=== PATIENT | female | born 1995 | race Caucasian/White ===

== ENCOUNTER 2017-09-23 13:19 | Inpatient (IN) ==
--- OUTSIDE RECORDS SUMMARY | 2017-10-03 05:25 | External Medical Summary | Continuity of Care Document ---
:1995 Author Organization [facility] Address [address] [place], [place] [id number] Phone Allergies, Adverse Reactions, Alerts Substance Reaction Severity Status No Known Drug Allergies Unknown Active Medications Medication Instructions Dosage Effective Dates Status Comments (start - stop) 28 mg take 1 tablet by Not Available - Active iron-800 mcg oral route every tablet day Problems Condition Effective Dates (start - stop) Clinical Status Follow-Up, Routine - Encntr for f/u exam aft trtmt for cond - oth than malig neoplm Encounter for suprvsn of normal - , first trimester Previous Low Transverse - 10 weeks gestation of - Encounter for screening for oth - infec/parastc diseases Encounter for screening of - mother Encntr screen for infections w sexl - mode of transmiss Active Procedures Procedure Date Initial OB Visit No Charge - INDUSTRIAL ENGINEER Infct antign, chlamydia trac, ampl Urine Culture OB Panel With An HIV Neisseria Gonorrhoeae, Amplification Venpnctr fngr/heel/ear stick routne Results Test Name Date and Time Measure Units Reference Range Abnormal Flag Comments Panel Description: OBSTETRIC PANEL WHITE BLOOD CELL 7.9 Thousand/uL 3.8-10.8 N COUNT 15:38:00 RED BLOOD CELL 4.98 Million/uL 3.80-5.10 N COUNT 15:38:00 HEMOGLOBIN 13.0 g/dL 11.7-15.5 N 15:38:00 HEMATOCRIT 40.6 % 35.0-45.0 N 15:38:00 MCV 81.5 fL 80.0-100.0 N 15:38:00 MCH 26.1 pg 27.0-33.0 L 15:38:00 MCHC 32.0 g/dL 32.0-36.0 N 15:38:00 RDW 12.0 % 11.0-15.0 N 15:38:00 PLATELET COUNT 381 Thousand/uL 140-400 N 15:38:00 MPV 10.5 fL 7.5-12.5 N 15:38:00 ABSOLUTE 5562 cells/uL 9159-6219 N NEUTROPHILS 15:38:00 ABSOLUTE 1864 cells/uL 850-3900 N LYMPHOCYTES 15:38:00 ABSOLUTE 419 cells/uL 200-950 N MONOCYTES 15:38:00 ABSOLUTE 24 cells/uL 15-500 N EOSINOPHILS 15:38:00 ABSOLUTE 32 cells/uL 0-200 N BASOPHILS 15:38:00 NEUTROPHILS 70.4 % N 15:38:00 LYMPHOCYTES 23.6 % N 15:38:00 MONOCYTES 5.3 % N 15:38:00 EOSINOPHILS 0.3 % N 15:38:00 BASOPHILS 0.4 % N 15:38:00 ANTIBODY SCREEN, NO ANTIBODIES N RBC W/REFL ID, 15:38:00 DETECTED Reference range TITER AND AG No antibodies detected This assay is a screening test for the detection of red blood cell antibodies. The test is not to be used for pretransfusion screening or for the medical management of an alloimmunized . ABO GROUP O 15:38:00 RH TYPE RH (D) 15:38:00 NEGATIVE RPR (DX) W/REFL NON-REACTIVE NON-REACTIV N TITER AND 15:38:00 E CONFIRMATORY TESTING HEPATITIS B NON-REACTIVE NON-REACTIV N SURFACE ANTIGEN 15:38:00 E RUBELLA ANTIBODY 1.01 index N Index (IGG) 15:38:00 Interpretation ----- <0.90 Not consistent with Immunity 0.90-0.99 Equivocal > or=1.00 Consistent with Immunity The presence of rubella IgG antibody suggests immunization or past or current infection withrubella virus.Test performed at [facility] [place] [address]Vwqsnjt r: CARMENZA JOLLY DO,MPH Panel Description: HIV 1/2 ANTIGEN/ANTIBODY,FOURTH GENERATION W/RFL HIV NON-REACTIVE NON-REACTIVE N HIV-1 antigen and HIV-1/HIV- 2 antibodies were AG/AB, 15:38:00 notdetected. There is no laboratory evidence of 4TH GEN HIVinfection. PLEASE NOTE: This information has been disclosed toyou from records whose confidentiality may beprotected by state law. If your state requires suchprotection, then the state law prohibits you frommaking any further disclosure of the informationwithout the specific written consent of the personto whom it pertains, or as otherwise permitted by law.A general authorization for the release of medical orother information is NOT sufficient for this purpose. For additional information please refer tohttp://education.Axtria/faq/BHJ911(This link is being provided for informational/educational purposes only.) The performance of this assay has not been clinicallyvalidated in patients less than 2 years old. REPORT COMMENT:FASTING:NOTest performed at [facility] [place] [address]Vlegzolv: CARMENZA JOLLY DO,MPH Panel Description: Bacteria identified in Urine by Culture CULTURE, URINE, SEE NOTE CULTURE, URINE, ROUTINE MICRO ROUTINE 15:47:00 NUMBER: [id number] TEST STATUS: FINAL SPECIMEN SOURCE: URINE SPECIMEN QUALITY: ADEQUATE RESULT: No GrowthREPORT COMMENT:RFASTING:UNKNOWNTest performed at [facility] [id number] [facility] CENTERweendyTRINITY HE[facility] [place] [address]Txplndnf: CARMENZA JOLLY DO,MPH Panel Description: CHLAMYDIA/N. GONORRHOEAE RNA, TMA CHLAMYDIA NOT DETECTED NOT DETECTED N TRACHOMATIS RNA, 15:44:00 TMA NEISSERIA NOT DETECTED NOT DETECTED N GONORRHOEAE RNA, 15:44:00 TMA [id number] SEE NOTE This test was 15:44:00 performed using the APTIMA COMBO2 Assay([employer] The analytical performance characteristics of this assay, when used to test SurePath specimens havebeen determined by [employer]. REPORT COMMENT:FASTING:UNKNO WNTest performed at [facility] [id number] [place] [place] [address]Yucitqjl: CARMENZA JOLLY DO,MPH Advance Directives Directive Yes / No Effective Date File Name Unknown Encounters Encounter Practice Location Reason(s) Diagnoses Date Provider Care Team Description For Visit Members Rajiv Juarez Encounter for Vlad Referring In Womens suprvsn of normal [place]. 700 Provider: Lora FERGUSON, , first [facility] trimesterPrevious Center Vlad Armstrong, 1522, Low Transverse , [place] 700 [place], C-Ptyorar82 weeks 120, Medical [place], gestation of [facility] [id number], [facility] [place], [place] 120, [place] for screening for [id number] Larry, tel:+ ot infec/parastc , . [place], [facility] tel: [phone]. for [id number] tel:+ screening of [phone] motherEncntr screen for infections w sexl mode of transmiss Rajiv Juarez Mar- Vlad Referring In Womens Follow-Up, Routine [place]. 700 Provider: Lora FERGUSON, 6 Medical [place] [address] [place] [address], , [place] S, 700 [place], 120, Medical [place], [facility] [id number], [place], [place] 120, [place] [id number] [place], tel: , . [place], tel: [phone]. [id number] tel:[phone] Rajiv Juarez Encntr for f/u exam Feb- Ross Referring In Womens aft trtmt for cond 0-201 [place]. Provider: Lora FERGUSON, [facility] 5 700 [place] [address] neoplm Medical [place] 1522, Center S, [address] Dr Elana, [facility] Medical [place], 120, Center [id number], Larry, [facility] 120, [place], tel:[phone] [place], , [place]. [id number]. tel: tel:[phone] Rajiv Juarez Oct-2 [place] Referring In Womens 2-201 [place]. Provider: Health PHYLLIS, 5 700 [place] Box Medical [place] 1522, Center S, [address] Dr Elana, [facility] Medical [place], 120, Center [id number], Larry, [facility] 120, [place] K[place], tel:[phone] [place], , [place]. [id number]. tel: tel:[phone] Rajiv Juarez Oct-0 [place] Referring In Womens 8-201 [place]. Provider: Health PHYLLIS, 5 700 [place] PO Box Medical [place] 1522, Center S, [address] Dr Elana, [facility] Medical [place], 120, Center [id number], Larry, [facility] 120, [place] Larry WHITE, tel:[phone] [place], , [place]. [id number]. tel: tel:[phone] Rajiv Juarez Sep-0 [place] Referring In Womens 8-201 [place]. Provider: Health PHYLLIS, 5 700 [place] Box Medical [place] 1522, Center S, [address] Dr Elana, [facility] Medical [place], 120, Center [id number], Larry, [facility] 120, [place] Larry WHITE, tel:[phone] [place], , [place]. [id number]. tel: tel:[phone] Rajiv Juarez May-2 [place] Referring In Womens 1-201 [place]. Provider: Health PHYLLIS, 5 700 [place] PO Box Medical [place] 1522, Center S, [address] Dr Elana, [facility] Medical [place], 120, Center [id number], Larry, [facility] 120, [place] Larry WHITE, tel:[phone] [place], , [place]. [id number]. tel: tel: [phone] Family History Family Member Diagnosis Age At Onset No family history of Ovarian Cancer No family history of Lung Disease No family history of Stroke No family history of Epilepsy No family history of Diabetes No family history of Kidney Disease No family history of Thyroid Disorder No family history of Osteoporosis No family history of Hypertension No family history of Cardiovascular Disease No family history of Breast Cancer No family history of Colon Cancer Immunizations Vaccine Date Status Comments Tdap completed Source: New Immunization Record Influenza, seasonal, injectable, completed Source: New Immunization Record preservative free, 3 yrs or older Rhophylac completed Source: New Immunization Record Payers Payer name Insurance type Covered green party ID Authorization(s) [facility] [id number] [employer] Medicaid [place] [id number] [facility] [id number] [employer] [place] Medicaid [place] [id number] [facility] [id number] [place] Medicaid MC [id number] [facility] [id number] [place] Medicaid [place] [id number] Social History Type Description Quantity Date Captured Alcohol Use Details No Caffeine Use Details combo Tobacco Use Status Never smoked tobacco Smoking Status Former smoker Non-Smoking Tobacco Use : No Details Available : No Details Available Details Vital Signs Date / Height Weight BMI Pulse Blood Temperature Respiratory Body Head BMI Time: Rate Pressure Rate Surface Circumference percentile Area 145.90 25.0 130/80 lbs 8 mm[Hg] 3:04 kg/m PM eter (2) Chief Complaint And Reason For Visit Unknown Chief Complaint And Reason For Visit Reason For Referral Reason For Referral Unknown Plan Of Care Date Type Action Status Goal Tobacco cessation counseling completed Appointment Francis Levine BOOKED Future Order: Lab Order Pap Smear With HPV Reflex If ASCUS Ordered ([id number]), Collected on: Date Type Problem Goal Intervention Status Start Date Unknown. History Of Present Illness Encounter Date Complaint History Of Present Illness This patient has no known history of present illness Functional Status Encounter Date Functional Assessment Cognitive Assessment Unknown Medications Administered Medication Instructions Dosage Effective Dates (start - stop) Status Comments Drug Treatment Unknown Instructions Date Instruction Additional Information toxoplasmosis precautions (cats / raw meat) sexual activity exercise indications for ultrasound influenza vaccine environmental / work hazards travel use of any medications (including supplements, vitamins, herbs, OTC drugs) domestic violence seat belt use childbirth classes / hospital facilities hospital registration genetic testing risks HIV and other routine tests risk factors identified by history anticipated course of care nutrition and weight gain counseling, special diet HIV and other routine tests risk factors identified by history anticipated course of care nutrition and weight gain counseling, special diet toxoplasmosis precautions (cats / raw meat) sexual activity exercise indications for ultrasound influenza vaccine environmental / work hazards travel tobacco (ask, advise, assess, assist and arrange) alcohol illicit / recreational drugs use of any medications (including supplements, vitamins, herbs, OTC drugs) smoking counseling domestic violence seat belt use childbirth classes / hospital facilities hospital registration genetic testing new ob handbook risks
--- OUTSIDE RECORDS SUMMARY | 2017-10-03 05:25 | External Medical Summary | Continuity of Care Document ---
:1995 Author Organization [facility] Address [address] [place], [place] [id number] Phone Allergies, Adverse Reactions, Alerts Substance Reaction Severity Status No Known Drug Allergies Unknown Active Medications Medication Instructions Dosage Effective Dates Status Comments (start - stop) Rhophylac 1,500 - Active unit (300 mcg)/2 mL injection syringe 28 mg take 1 tablet by Not Available - Active iron-800 mcg oral route every tablet day Problems Condition Effective Dates (start - stop) Clinical Status Follow-Up, Routine - Encntr for f/u exam aft trtmt for cond - oth than malig neoplm Previous Low Transverse - Encntr screen for infections w sexl - mode of transmiss Encounter for screening for oth - infec/parastc diseases Encounter for suprvsn of normal - , first trimester Encounter for screening of - mother 10 weeks gestation of - Encounter for suprvsn of normal - , third trimester 28 weeks gestation of - Type O blood, Rh negative - Previous Low Transverse - 24 weeks gestation of - Previous Low Transverse - Encounter for suprvsn of normal - , second trimester 20 weeks gestation of - Previous Low Transverse - Encounter For Screening For - Malformations 20 weeks gestation of - Encounter for suprvsn of normal - , second trimester 14 weeks gestation of - Encounter for suprvsn of normal - , third trimester 34 weeks gestation of - Encounter for suprvsn of normal - , third trimester 30 weeks gestation of - Encounter for suprvsn of normal - , third trimester 37 weeks gestation of - Encounter for suprvsn of normal - , third trimester 36 weeks gestation of - Encounter for suprvsn of normal - , third trimester 32 weeks gestation of - Active Procedures Procedure Date Unknown Results Test Name Date and Time Measure Units Reference Range Abnormal Flag Comments Unknown Advance Directives Directive Yes / No Effective Date File Name Unknown Encounters Encounter Practice Location Reason(s) Diagnoses Date Provider Care Team Description For Visit Members Rajiv Juarez Encounter for Dagoberto-2 Vlad Referring In Womens suprvsn of normal 8-201 Aj. 700 Provider: Health [place], , third 8 Medical Aj PO Box weeks Center Vlad R, 1522, gestation of [place], 120, Medical [facility] [id number], [facility] 120, [id number] [place], tel: , . [place], tel: [phone]. [id number] tel:[phone] Rajiv Juarez Encounter for Dagoberto-2 Vlad Referring In Womens suprvsn of normal 1-201 Aj. 700 Provider: Health [place], , third 8 Medical Aj PO Box [email or web address] weeks Center Vlad R, 1522, gestation of [place], 120, Medical [facility] [id number], [facility] 120, [id number] Larry, tel: , [facility], tel: [phone]. [phone] tel:[phone] Rajiv Juarez Dagoberto-1 Vlad In Womens 2-201 Aj. 700 [facility], 8 Medical PO Box Center 1522, [place], [facility] [place], [place] [id number], [place], [id number] tel: , [place]. tel: [phone] Rajiv Juarez Encounter for Dagoberto-0 Vlad Referring In Womens suprvsn of normal 7-201 [place]. 700 Provider: Health [place], , third 8 Medical Aj PO Box [email or web address] weeks Center Vlad R, 1522, gestation of [place], 120, Medical [facility] [id number], CINDY, [facility] 120, [place] [id number] [place], tel: , [place]. [place], tel: [phone]. [id number] tel:[phone] Rajiv Juarez Encounter for May-2 Vlad Referring In Womens suprvsn of normal 4-201 [place]. 700 Provider: Health PHYLLIS, , third 8 Medical Aj PO Box [email or web address] weeks Center Vlad R, 1522, gestation of [place] Schumacher [place], 120, Medical [facility] [id number], CINDY, [facility] 120, [place] [id number] Larry, tel: , [place]. [place], tel: [phone]. [id number] tel:[phone] Rajiv Juarez Encounter for May-1 Vlad Referring In Womens suprvsn of normal 0-201 [place]. 700 Provider: Health PHYLLIS, , third 8 Medical Aj PO Box [email or web address] weeks Center Vlad R, 1522, gestation of [place] Schumacher [place], 120, Medical [facility] [id number], CINDY, [facility] 120, [place] [id number] Larry, tel: , [place]. [place], tel: [phone]. [phone] tel:[phone] Rajiv Juarez Encounter for Apr-2 [place] Referring In Womens suprvsn of normal 7-201 [place]. Provider: Health PHYLLIS, , third 8 700 Aj PO Box [email or web address] weeks Medical Vlad R, 1522, gestation of Juanito Mcgarry [place], pregnancyType O , [facility], blood, Rh 120, Center [id number], negative Larry, [facility] 120, Larry WHITE, tel:[phone] [place], , [place]. [id number]. tel: tel: [phone] Associates Larry Previous Low Mar-2 Vlad Referring In Womens Transverse 9-201 [place]. 700 Provider: Lora FERGUSON, [id number] weeks 8 Medical [place] PO Box gestation of Center Vlad R, 1522, [place]umacher [place], 120, Medical [place], Larry, [place] [id number], [place], [place] 120, [place] [id number] Larry, tel: , [place]. [place] tel: [phone]. [id number] tel:[phone] Associates Larry Previous Low Feb-2 Vlad Referring In Womens Transverse 6-201 [place]. 700 Provider: Lora FERGUSON, C-SectionEncounte 8 [facility] PO Box r for suprvsn of Center Vlad R, 1522, normal , [place], second 120, Medical [place], [email or web address] [facility] , gestation of [place], [place] 120, [place] [id number] Larry, tel: , [place]. [place] tel: [phone]. [id number] tel:[phone] Associates Larry Previous Low Feb-2 Vlad Referring In Womens Ultrasound Transverse 6-201 [place]. 700 Provider: Lora FERGUSON, C-SectionEncounte 8 [facility] PO Box r For Center Vlad R, 1522, Screening For [place], [id number] 120, Medical [place], weeks gestation Larry [place] [id number], of [place], [place] 120, [place] [id number] Larry, tel: , [place]. [place] tel: [phone]. [id number] tel:[phone] Associates Larry Encounter for Elias- Vlad Referring In Womens suprvsn of normal 8-201 [place]. 700 Provider: Lora FERGUSON, , second 8 Medical [place] PO Box [email or web address] weeks Center Vlad R, 1522, gestation of [place], 120, Medical [place], [facility] [id number], [place], [place] 120, [place] [id number] Larry, tel: , [place]. [place] tel: [phone]. [phone] tel:[phone] Rajiv Juarez Previous Low Dec-2 Vlad Referring In Womens Transverse 1- [place]. 700 Provider: Lora FERGUSON, C-SectionEncntr 7 Medical [place] PO Box screen for Center Vlad R, 1522, infections w sexl , [place] 700 [place], mode of 120, Medical CT, transmissEncounte Larry, [place] [id number], r for screening CT, [facility] 120, [place] for oth [id number] Larry, tel: infec/parastc , [place]. [place], diseasesEncounter tel: [phone]. for suprvsn of [id number] tel: normal , [phone] first trimesterEncounte r for screening of [email or web address] weeks gestation of Rajiv Juarez Mar-0 Vlad Referring In Womens Follow-Up, [place]. 700 Provider: Lora FERGUSON, Routine 6 Medical [place] PO Box [facility]22, , [facility] S, [address] [place] [address], 120, [facility] [id number], [facility] 120, [place] [id number] [place], tel: , [place]. [place], tel: [phone]. [id number] tel:[phone] Rajiv Juarez Encntr for f/u Dec-1 [place] Referring In Womens exam aft trtmt 0-201 [place]. Provider: Lora FERGUSON, for cond oth than 5 700 [place] PO Box [facility] Medical [facility] 1522, Center S, [address] Dr Elana, [facility], 120, [place] [id number], [facility] 120, [place] Larry WHITE, tel: [phone] [place], , [place]. [id number]. tel: tel: [phone] Rajiv Juarez Oct-2 [place] Referring In Womens 2-201 [place]. Provider: Lora FERGUSON, 5 700 [place] PO Box Medical [facility] 1522, Center S, [address] Dr Elana, [facility], 120, [place] [id number], Larry, [facility] 120, [place] Larry WHITE, tel:[phone] [place], , [place]. [id number]. tel: tel:[phone] Associates Larry Dec-0 [place] Referring In Womens 8- [place]. Provider: Lora FERGUSON, 5 700 [place] Medical [place] 1522, Center S, [address] Dr Elana, [facility] [place], 120, Center [id number], [facility] 120, Larry WHITE, tel:[phone] [place], , [place]. [id number]. tel: tel:[phone] Associates Larry Nov-0 [place] Referring In Womens 8- [place]. Provider: Lroa FERGUSON, 5 700 [place] Medical [place] 1522, Center S, [address] Dr Elana, [facility], 120, [place] [id number], [facility] 120, Larry WHITE, tel:[phone], , [place]. [id number]. tel: tel:[phone] Associates Larry July- [place] Referring In Womens -201 [place]. Provider: Lora FERGUSON, 5 700 [place] Medical [place] 1522, Center S, [address] Dr Elana, [facility] [place], 120, Center [id number], [facility] 120, Larry WHITE, tel:[phone] [place], , [place]. [id number]. tel: tel:[phone] Family History Family Member Diagnosis Age At [...] Comments Tdap completed Source: New Immunization Record Rhophylac completed Source: New Immunization Record Tdap completed Source: New Immunization Record Influenza, seasonal, injectable, completed Source: New Immunization Record preservative free, 3 yrs or older Rhophylac completed Source: New Immunization Record Payers Payer name Insurance type Covered democrat ID Authorization(s) [place] [id number] [employer] [place] Medicaid [place] [id number] [facility] BL [id number] [employer] [place] [facility] [id number] [facility] BL [id number] [employer] [place] [facility] [id number] [facility] BL [id number] [employer] [place] Medicaid [place] [id number] [facility] [id number] [employer] [place] [id number] [facility] [id number] [employer] [place] [id number] Social History Type Description Quantity Date Captured Unknown Vital Signs Date / Height Weight BMI Pulse Blood Temperature Respiratory Body Head BMI Time: Rate Pressure Rate Surface Circumference percentile Area Unknown Chief Complaint And Reason For Visit Unknown Chief Complaint And Reason For Visit Reason For Referral Reason For Referral Unknown Plan Of Care Date Type Action Status Goal Tobacco cessation counseling completed Appointment Francis Levine BOOKED Appointment Francis Levine - [facility] - [facility]/S BOOKED Future Order: Lab Order Pap Smear With HPV Reflex If Ordered ASCUS ([id number]), Collected on: Future Order: Radiology Order Complete OB Ultrasound > 14 Ordered Weeks ([id number]) Date Type Problem Goal Intervention Status Start [...]
--- OUTSIDE RECORDS SUMMARY | 2017-10-03 05:25 | External Medical Summary | Continuity of Care Document ---
:1995 Author Organization [facility] Address [address] [place], [place] [id number] Phone Allergies, Adverse Reactions, Alerts Substance Reaction [...] Rh negative - Previous Low Transverse - Encntr screen for infections w sexl - mode of transmiss Encounter for screening for oth - infec/parastc diseases Encounter for suprvsn of normal - , first trimester Encounter for screening of - mother 10 weeks gestation of - Previous Low Transverse - 24 weeks [...] third trimester 30 weeks gestation of - Active Procedures Procedure Date OB Visit No Charge Injection Administration Rhophylac 100 Units Results Test Name Date and Time Measure Units Reference Range Abnormal Flag Comments Panel Description: CBC With Differential/Platelet WBC 14:34:00 8.8 x10E3/uL 3.4-10.8 RBC 14:34:00 3.94 x10E6/uL 3.77-5.28 Hemoglobin 14:34:00 10.3 g/dL 11.1-15.9 L Hematocrit 14:34:00 33.4 % 34.0-46.6 L MCV 14:34:00 85 fL 79-97 MCH 14:34:00 26.1 pg 26.6-33.0 L MCHC 14:34:00 30.8 g/dL 31.5-35.7 L RDW 14:34:00 13.7 % 12.3-15.4 Platelets 14:34:00 324 x10E3/uL 150-379 Neutrophils 14:34:00 72 % Not Estab. Lymphs 14:34:00 20 % Not Estab. Monocytes 14:34:00 7 % Not Estab. Eos 14:34:00 1 % Not Estab. Basos 14:34:00 0 % Not Estab. Immature Cells 14:34:00 Neutrophils (Absolute) 14:34:00 6.3 x10E3/uL 1.4-7.0 Lymphs (Absolute) 14:34:00 1.8 x10E3/uL 0.7-3.1 Monocytes(Absolute) 14:34:00 0.7 x10E3/uL 0.1-0.9 Eos (Absolute) 14:34:00 0.0 x10E3/uL 0.0-0.4 Baso (Absolute) 14:34:00 0.0 x10E3/uL 0.0-0.2 Immature Granulocytes 14:34:00 0 % Not Estab. Immature Grans (Abs) 14:34:00 0.0 x10E3/uL 0.0-0.1 NRBC 14:34:00 Hematology Comments: 14:34:00 Panel Description: Glucose [Mass/volume] in Serum or Plasma --1 hour post 50 g glucose PO Gestational Diabetes Screen 14:34:00 73 mg/dL 65-135 Panel Description: Blood group antibody screen [Presence] in Serum or Plasma Antibody Screen 14:34:00 Negative Negative Advance Directives Directive Yes / No Effective Date File Name Unknown Encounters Encounter Practice Location Reason(s) Diagnoses Date Provider Care Team Description For Visit Members Rajiv Juarez Encounter for Vlad [facility] 0-201 [place]. 700 Provider: Lora FERGUSON, , third 8 Medical [facility] Box weeks [place] Vlad R, 1522, gestation of Dr [facility] [place], 120, [facility] [id number], [place], [place] 120, [place] [id number] [place], tel: , [place]. [place], tel: [phone]. [phone] tel:[phone] Rajiv Juarez Encounter for Apr-2 [place] Referring In [facility] normal 7-201 [place]. Provider: Lora FERGUSON, , third 8 700 [place] [address] Box [id number] weeks Medical Vlad R, 1522, gestation of Center Malgor[place]ata Huitron, pregnancyType O , [facility], blood, Rh 120, [place] [id number], negative Larry [facility] 120, Larry WHITE, tel: [phone] [facility] , . [id number]. tel: tel: [phone] Rajiv Juarez Previous Low Mar-2 Vlad Referring In Women Transverse 9-201 [place]. 700 Provider: Lora FERGUSON, [id number] weeks 8 Medical [place] PO Box gestation of Center Vlad R, 1522, [place] Schumacher[place], 120, Medical [place], [facility] [id number], [place], [place] 120, [place] [id number] Larry, tel:+ , [place]. [place], tel: [phone]. [id number] tel:[phone] Rajiv Juarez Previous Low Feb-2 Vlad Referring In Womens Transverse 6-201 [place]. 700 Provider: Lora FERGUSON, C-SectionEncounte 8 [facility] PO Box r for suprvsn of Center Vlad R, 1522, normal , [place] Schumacher, second 120, Medical [place], weeks [facility] [id number], gestation of [place], [place] 120, [place] [id number] Larry, tel: , [place]. [place], tel: [phone]. [phone] tel:[phone] Rajiv Juarez Previous Low Feb-2 Vlad Referring In Womens Ultrasound Transverse 6-201 [place]. 700 Provider: Lora FERGUSON, C-SectionEncounte 8 [facility] PO Box r For Center Vlad R, 1522, Screening For [place] Schumacher, [id number] 120, Medical [place], weeks gestation [facility] [id number], of [place], [place] 120, [place] [id number] Larry, tel: , [place]. [place], tel: [phone]. [id number] tel:[phone] Rajiv Juarez Encounter for Elias- Vlad Referring In Womens suprvsn of normal 8-201 [place]. 700 Provider: Lora FERGUSON, , second 8 Medical [place] PO Box [id number] weeks Center Vlad R, 1522, gestation of [place] Schumacher, 120, Medical [place], [facility] [id number], [place], [place] 120, [place] [id number] Larry, tel:+ , [place]. [place], tel: [phone]. [phone] tel:[phone] Rajiv Juarez Previous Low Dec-2 Vlad Referring In Womens Transverse 1-201 [place]. 700 Provider: Health PHYLLIS, C-SectionEncntr 7 [facility] Box screen for Center Vlad R, 1522, infections w sexl , [place] 700 [place], mode of 120, Medical [place], transmissEncounte [facility] [id number], r for screening [place], [facility] 120, [place] for oth [id number] Larry, tel: infec/parastc , [place]. [place], diseasesEncounter tel:[phone]. for suprvsn of [id number] tel: normal , [phone] first trimesterEncounte r for screening of weeks gestation of Associates Larry Elias-0 Vlad Referring In Womens Follow-Up, [place]. 700 Provider: Lora FERGUSON, Routine 6 Medical [place] PO Box [facility] 1522, Dr, [place] S, 700 [place], 120, Medical [place], [facility] [id number], [place], [facility] 120, [place] [id number] Larry, tel: , [place]. [place], tel: [phone]. [phone] tel:[phone] Rajiv Juarez Encntr for f/u Feb- [facility] Referring In Womens exam aft trtmt 0-201 [place]. Provider: Lora FERGUSON, for cond oth than 5 700 [place] PO Box [facility] 1522, Center S, [address] Dr Elana, [facility], 120, [place] [id number], [facility] 120, [place] Larry WHITE, tel: [phone] [facility] , [place]. [id number]. tel: tel: [phone] Rajiv Juarez Dec-2 [place] Referring In Womens 2-201 [place]. Provider: Lora FERGUSON, 5 700 [place] PO Box [facility] 1522, Center S, [address] Dr Elana, [facility], 120, Center [id number], [facility] 120, [place] Larry WHITE, tel: [phone] [facility] , [place]. [id number]. tel: tel: [phone] Rajiv Juarez Dec-0 [place] Referring In Womens 8-201 [place]. Provider: Health [place], 5 700 [place] KISER Box Medical [place] 1522, Center S, 700 Dr Elana, [facility] [place], 120, Center [id number], Larry, [facility] 120, [place] Larry WHITE, tel:[phone] [place], , [place]. [id number]. tel: tel:[phone] Rajiv Juarez Nov- [place] Referring In Womens 8-201 [place]. Provider: Health PA, 5 700 [place] PO Box Medical [place] 1522, Center S, 700 Dr Elana, [facility] [place], 120, Center [id number], [place], [facility] 120, [place] Larry WHITE, tel:[phone] [place], , [place]. [id number]. tel: tel:[phone] Rajiv Juarez July- [place] Referring In Womens 1-201 [place]. Provider: Health PA, 5 700 [place] KISER Box Medical [place] 1522, Center S, 700 Dr Elana, [facility] [place], 120, Center [id number], Larry, [facility] 120, [place] Larry WHITE, tel:[phone] [place], , [place]. [id number]. tel: tel:[phone] Family History Family Member Diagnosis Age At [...] Colon Cancer Immunizations Vaccine Date Status Comments [facility] completed Source: New Immunization Record Tdap completed Source: New Immunization Record Influenza, seasonal, injectable, completed Source: New Immunization Record preservative free, 3 yrs or older Rhophyla completed Source: New Immunization Record Payers Payer name Insurance type Covered alliance party ID Authorization(s) YOUSUF OHARA [id number] [place] [id number] [facility] [place] [id number] [place] [id number] [facility] [place] [id number] [place] - Medicaid [place] [id number] [facility] BL [id number] [place] - Medicaid [place] [id number] [facility] [id number] [place] [id number] Social History Type Description Quantity Date Captured Alcohol Use Details No Caffeine Use Details Unknown Tobacco Use Status Smoking Status Former smoker Vital Signs Date / Height Weight BMI Pulse Blood Temperature Respiratory Body Head BMI Time: Rate Pressure Rate Surface Circumference percentile Area 27.4 1 mm[Hg] 1:36 kg/m PM eter (2) 164.90 28.3 lbs 0 mm[Hg] 1:39 kg/m PM eter (2) Chief Complaint And Reason For Visit Unknown Chief Complaint And Reason For Visit Reason For Referral Reason For Referral Unknown Plan Of Care Date Type Action Status Goal Tobacco cessation counseling completed Appointment Francis Levine BOOKED Appointment Francis Levine [place] [facility] [place] Future Order: Lab Order Pap Smear With HPV Reflex If Ordered ASCUS ([id number]), Collected on: Future Order: Radiology Order Complete OB Ultrasound > 14 Ordered Weeks ([id number]) Date Type Problem Goal Intervention Status Start [...]
--- OUTSIDE RECORDS SUMMARY | 2017-10-03 05:25 | External Medical Summary | Continuity of Care Document ---
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 700 Provider: Health PHYLLIS, C-SectionEncounte 8 [facility] PO Box r for suprvsn of Center Vlad R, 1522, normal , [place] Schumacher, second 120, Medical [place], [id number] [id number], gestation of [place], [place] 120, [place] [id number] [place], tel: , [place]. [place], tel: [phone]. [id number] tel:[phone] Rajiv Juarez Previous Low Feb-2 Vlad Referring In Womens Ultrasound Transverse 6-201 [place]. 700 Provider: Lora FERGUSON, C-SectionEncounte 8 [facility] PO Box r For Center Vlad R, 1522, Screening For [place] Schumacher, [id number] 120, Medical [place], weeks gestation [facility] [id number], of [place], [place] 120, [place] [id number] Larry, tel: , [place]. [place] tel: [phone]. [phone] tel:[phone] Rajiv Juarez Encounter for Elias- Vlad Referring In Womens suprvsn of normal 8-201 [place]. 700 Provider: Lora FERGUSON, , second 8 Medical [place] PO Box weeks Center Vlad R, 1522, gestation of [place] Schum[place], 120, Medical [place], [facility] [id number], [place], [place] 120, [place] [id number] Larry, tel: , [place]. [place] tel: [phone]. [phone] tel:[phone] Rajiv Juarez Previous Low Dec-2 Vlad Referring In Womens Transverse 1-201 [place]. 700 Provider: Health PHYLLIS, C-SectionEncntr 7 [facility] PO Box screen for Center Vlad R, 1522, infections w sexl [place] Schumacher, mode of 120, Medical [place], transmissEncountjosse [facility]Core[facility] [id number], r for screening [place], [place] 120, [place] for oth [id number] Larry, tel: infec/parastc , [place]. [place] diseasesEncounter tel: [phone]. for suprvsn of [id number] tel: normal , [phone] first trimesterEncounte r for screening of weeks gestation of Rajiv Juarez Mar- Vlad Referring In Womens Follow-Up, Aj. 700 Provider: Lora FERGUSON, Routine 6 Medical [place] PO Box [facility] 1522, , [facility], 700 [place], 120, Medical [place], Larry, [place] [id number], [place], [facility] 120, [place] [id number] [place], tel: , [place]. [place], tel: [phone]. [phone] tel:[phone] Rajiv Juarez Encntr for f/u [place] Referring In Womens exam aft trtmt 0-201 [place]. Provider: Lora FERGUSON, for cond oth than 5 700 [place] PO Box [facility] 1522, [place] S, [address] Dr Elana, [facility], 120, [place] [id number], [facility] 120, Larry WHITE, tel: [phone] [place], , [place]. [id number]. tel: tel: [phone] Rajiv Juarez 2 [place] Referring In Womens 2-201 [place]. Provider: Lora FERGUSON, 5 700 [place] PO Box [facility] 1522, Center S, [address] Dr Elana, [facility], 120, [place] [id number], [facility] 120, Larry WHITE, tel: [phone] [place], , [place]. [id number]. tel: tel: [phone] Rajiv Juarez 0 [place] Referring In Womens 8-201 [place]. Provider: Lora FERGUSON, 5 700 [place] PO Box [facility] 1522, Center S, [address] Dr Elana, [facility], 120, Center [id number], Larry, [facility] 120, [place] Larry WHITE, tel:[phone] [place], , [place]. [id number]. tel: tel: [phone] Rajiv Juarez Sep-0 [place] Referring In Womens 8-201 [place]. Provider: Health PA, 5 700 [place] KISER Box Medical [place] 1522, Center S, [address] Dr Elana, [facility], 120, Center [id number], Larry, [facility] 120, Larry WHITE, tel:[phone] [place], , [place]. [id number]. tel: tel:[phone] Rajiv Juarez July-2 [place] Referring In Womens 1-201 [place]. Provider: Health PA, 5 700 [place] PO Box Medical [place] 1522, Center S, [address] Dr Elana, [facility], 120, [place] [id number], Larry, [facility] 120, Larry WHITE, tel:[phone] [place], , [place]. [id number]. tel: tel:[phone] Family History Family Member Diagnosis Age At [...] Record Payers Payer name Insurance type Covered constitution party ID Authorization(s) [facility] [place] BL [id number] [place] Medicaid [place] [id number] [facility] [place] [id number] [place] - Medicaid [place] [id number] [facility] [place] [id number] [place] - Medicaid [place] [id number] [facility] [place] [id number] [place] [id number] Social History Type Description Quantity Date Captured Alcohol Use Details No Caffeine Use Details Unknown Tobacco Use Status Smoking Status Former smoker Vital Signs Date / Height Weight BMI Pulse Blood Temperature Respiratory Body Head BMI Time: Rate Pressure Rate Surface Circumference percentile Area 153.40 26.3 118/69 -2018 lbs 3 mm[Hg] 3:40 kg/m PM eter (2) Chief Complaint And [...] Complete OB Ultrasound > 14 Ordered Weeks ([id number]) Date Type Problem Goal Intervention Status Start [...]
--- OUTSIDE RECORDS SUMMARY | 2017-10-03 05:25 | External Medical Summary | Continuity of Care Document ---
:1994 Author Organization [facility] Address [address] [place], [place] [phone] Phone Allergies, Adverse Reactions, Alerts Substance Reaction [...] aft trtmt for cond - oth than akhildianne bangura Previous Low Transverse - Encounter For Screening For - Malformations 20 weeks gestation of - Previous Low [...] second trimester 20 weeks gestation of - Encounter for suprvsn of normal - , second trimester 14 weeks gestation of - Active Procedures Procedure Date Ultrasound exam of preg uterus, complete Results Test Name Date and Time Measure Units Reference Range Abnormal Flag Comments Unknown Advance Directives Directive Yes / No Effective Date File Name Unknown Encounters Encounter Practice Location Reason(s) Diagnoses Date Provider Care Team Description For Visit Members Rajiv Juarez Previous Low Feb-2 Vlad Referring In Womens Transverse 6-201 [place]. 700 Provider: Health PHYLLIS, C-SectionEncounte 8 [facility] PO Box r for suprvsn of Center Vlad R, 1522, normal , [place] Schumacher, second 120, Medical [place], [id number] [id number], gestation of [place], [place] 120, [place] [id number] Larry, tel: , [place]. [place], tel: [phone]. [phone] tel:[phone] Rajiv Juarez Previous Low Feb-2 Vlad Referring In Womens Ultrasound Transverse 6-201 [place]. 700 Provider: Lora FERGUSON, C-SectionEncounte 8 [facility] PO Box r For Center Vlad R, 1522, Screening For [place] Schumacher, [id number] 120, Medical [place], weeks gestation [facility] [id number], of [place], [place] 120, [place] [id number] Larry, tel: , [place]. [place] tel: [phone]. [id number] tel:[phone] Rajiv Juarez Encounter for Elias- Vlad Referring In Womens suprvsn of normal 8-201 [place]. 700 Provider: Lora FERGUSON, , second 8 Medical [place] PO Box [id number] weeks Center Vlad R, 1522, gestation of [place] Schum[place], 120, Medical [place], [facility] [id number], [place], [place] 120, [place] [id number] Larry, tel: , [place]. [place] tel: [phone]. [id number] tel:[phone] Rajiv Juarez Previous Low Dec-2 Vlad Referring In Womens Transverse 1-201 [place]. 700 Provider: Health PHYLLIS, C-SectionEncntr 7 [facility] PO Box screen for Center Vlad R, 1522, infections w sexl [place] Schumacher, mode of 120, Medical [place], transmissEncountjosse [facility]Vib[facility] [id number], r for screening [place], [place] 120, [place] for oth [id number] Larry, tel: infec/parastc , [place]. [place] diseasesEncounter tel: [phone]. for suprvsn of [id number] tel: normal , [phone] first trimesterEncounte r for screening of [id number] weeks gestation of Rajiv Juarez Mar- Vlad Referring In Womens Follow-Up, Aj. 700 Provider: Lora FERGUSON, Routine 6 Medical [place] PO Box [facility] 1522, , [facility], 700 [place], 120, Medical [place], Larry, [place] [id number], [place], [facility] 120, [place] [id number] Larry, tel: , [place]. [place], tel: [phone]. [phone] tel:[phone] Rajiv Juarez Encntr for f/u [place] Referring In Womens exam aft trtmt 0-201 [place]. Provider: Lora FERGUSON, for cond oth than 5 700 [place] PO Box [facility] 1522, [place] S, [address] Dr Elana, [facility], 120, [place] [id number], [facility] 120, Larry WHITE, tel: [phone] [place], , [place]. [id number]. tel: tel: [phone] Rajiv Juarez 2 [place] Referring In Womens 2-201 [place]. Provider: Lora FERGUSON, 5 700 [place] PO Box [facility] 1522, Center S, [address] Dr Elana, [facility], 120, [place] [id number], [facility] 120, Larry WHITE, tel: [phone] [place], , [place]. [id number]. tel: tel: [phone] Rajiv Juarez 0 [place] Referring In Womens 8-201 [place]. Provider: Lora FERGUSON, 5 700 [place] PO Box [facility] 1522, Center S, [address] Dr Elana, [facility], 120, Center [id number], Larry, [facility] 120, [place] Larry WHITE, tel:[phone] [place], , [place]. [id number]. tel: tel: [phone] Rajiv Juarez Nov-0 [place] Referring In Womens 8-201 [place]. Provider: Health PA, 5 700 [place] KISER Box Medical [place] 1522, Center S, [address] Dr Elana, [facility], 120, Center [id number], Larry, [facility] 120, Larry WHITE, tel: [phone] [place], , [place]. [id number]. tel: tel:[phone] Rajiv Juarez July- [place] Referring In Womens 1-201 [place]. Provider: Health PHYLLIS, 5 700 [place] PO Box Medical [place] 1522, Center S, [address] Dr Elana, [facility], 120, [place] [id number], Larry, [facility] 120, Larry WHITE, tel:[phone] [place], , [place]. [id number]. tel: tel: [phone] Family History Family Member Diagnosis Age At [...] Insurance type Covered green party ID Authorization(s) [facility] [place] [id number] [employer] [place] Medicaid [place] [id number] [facility] [place] BL [id number] [employer] [place] - Medicaid [place] [id number] [facility] [place] BL [id number] [place] - Medicaid MC [id number] [facility] BL [id number] [place] Medicaid MC [id number] Social History Type Description Quantity Date Captured [...] completed Appointment Francis Levine BOOKED Future Order: Radiology Order Complete OB Ultrasound > 14 Ordered Weeks ([id number]) Future Order: Lab Order Pap Smear With HPV Reflex If Ordered ASCUS (WPMPap1), Collected on: Date Type Problem Goal [...]
--- OUTSIDE RECORDS SUMMARY | 2017-10-03 05:26 | External Medical Summary | Continuity of Care Document ---
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 For additional information please refer [email or web address]/faq/[email or web address](This link is being provided for informational/educational purposes only.) The performance of this assay has not been clinicallyvalidated in patients less than 2 years old. REPORT COMMENT:FASTING:NOTest performed at [facility] [id number] [place] [address]Tvxqhlnz: CARMENZA JOLLY DO,MPH Panel Description: Bacteria identified in Urine by Culture CULTURE, URINE, SEE NOTE CULTURE, URINE, ROUTINE MICRO ROUTINE 15:47:00 NUMBER: [id number] TEST STATUS: FINAL SPECIMEN SOURCE: URINE SPECIMEN QUALITY: ADEQUATE RESULT: No GrowthREPORT COMMENT:RFASTING:UNKNOWNTest performed at [facility] [id number] [place] [address]Ecplkinn: CARMENZA JOLLY DO,MPH Panel Description: CHLAMYDIA/N. GONORRHOEAE RNA, TMA CHLAMYDIA NOT DETECTED NOT DETECTED N TRACHOMATIS RNA, 15:44:00 TMA NEISSERIA NOT DETECTED NOT DETECTED N GONORRHOEAE RNA, 15:44:00 TMA [id number] SEE NOTE This test was 15:44:00 performed using the APTIMA COMBO2 Assay([employer] The analytical performance characteristics of this assay, when used to test SurePath specimens havebeen determined by [employer]. REPORT COMMENT:FASTING:UNKNO WNTest performed at [facility] [id number] [place] [address]Kumdrsiy: CARMENZA JOLLY DO,MPH Advance Directives Directive Yes / No Effective Date File Name Unknown Encounters Encounter Practice Location Reason(s) Diagnoses Date Provider Care Team Description For Visit Members Rajiv Juarez Encounter for Vlad Referring In Womens suprvsn of normal [place]. 700 Provider: Health [place], , first 7 [facility] trimesterPrevious Center Vlad R, 1522, Low Transverse , [place] [address] [place], C-Qsabtgl36 weeks 120, [facility], gestation of [facility] [id number], pregnancyEncounter [place], [facility] 120, [place] for screening for [id number] Larry, tel: ot infec/parastc , . [place], [facility] tel: [phone]. for [id number] tel: screening of [id number] motherEncntr screen for infections w sexl mode of transmiss Rajiv Juarez Mar- Vlad Referring In Womens Follow-Up, Routine [place]. 700 Provider: Health PHYLLIS, 6 Medical [place] [address] [place] 1522, , [facility] S, 700 Elana, [facility], [facility] [id number], [place], [facility] 120, [place] [id number] Larry, tel: , . [place], tel: [phone]. [phone] tel:[phone] Rajiv Juarez Encntr for f/u exam Feb- [facility] Referring In Womens aft trtmt for cond 0-201 [place]. Provider: Health PHYLLIS, ot zeus mahmood 5 700 Greer PO Box [facility] [place] 1522, Center [place], [address] Dr Elana, [facility], 120, [place] [id number], [facility] 120, Larry WHITE, tel:[phone] [facility] , . [id number]. tel: tel:[phone] Rajiv Juarez Dec-2 [place] Referring In Womens 2-201 [place]. Provider: Lora FERGUSON, 5 700 Greer [place] [facility] [place] 1522, Center S, [address] Dr Elana, [facility] [place], 120, Center [id number], Larry, [facility] 120, [place] Larry WHITE, tel:[phone] [place], , [place]. [id number]. tel: tel:[phone] Rajiv Juarez Dec-0 [place] Referring In Womens 8-201 [place]. Provider: Lora FERGUSON, 5 700 Greer KISER Box Medical [place] 1522, Center S, [address] Dr Elana, [facility] [place], 120, Center [id number], Larry, [facility] 120, [place] Larry WHITE, tel:[phone] [place], , [place]. [id number]. tel: tel:[phone] Rajiv Juarez Sep-0 [place] Referring In Womens 8-201 Greer. Provider: Lora FERGUSON, 5 700 Greer KISER Box Medical [place] 1522, Center S, [address] Dr Elana, [facility] [place], 120, Center [id number], Larry, [facility] 120, [place] Larry WHITE, tel:[phone] [place], , [place]. [id number]. tel: tel:[phone] Rajiv Juarez July-2 [place] Referring In Womens 1-201 Greer. Provider: Lora FERGUSON, 5 700 Greer KISER Box Medical [place] 1522, Center S, [address] Dr Elana, [facility] [place], 120, Center [id number], Larry, [facility] 120, [place] Larry WHITE, tel:[phone] [place], , [place]. [id number]. tel: tel:[phone] Family History Family Member Diagnosis Age At [...] Insurance type Covered constitution party ID Authorization(s) [facility] [id number] [place] Medicaid [place] [id number] [facility] [id number] [place] - Medicaid [place] [id number] [facility] [id number] [place] - Medicaid [place] [id number] [facility] [id number] [place] Medicaid [place] [id number] Social History Type Description Quantity Date Captured [...] Action Status Goal Tobacco cessation counseling completed Future Order: Lab Order Pap Smear With [...]
--- OUTSIDE RECORDS SUMMARY | 2017-10-03 05:26 | External Medical Summary | Continuity of Care Document ---
:1994 Author Organization [facility] Address [address] [place], [place] [phone] Phone Allergies, Adverse Reactions, Alerts Substance Reaction [...] aft trtmt for cond - oth than timoteo kiseryobanisimone Previous Low Transverse - 24 weeks gestation [...] Procedures Procedure Date OB Visit No Charge Results Test Name Date and Time Measure Units Reference Range Abnormal Flag Comments Unknown Advance Directives Directive Yes / No Effective Date File Name Unknown Encounters Encounter Practice Location Reason(s) Diagnoses Date Provider Care Team Description For Visit Members Associates Larry Previous Low Mar-2 Vlad Referring In Womens Transverse 9-201 [place]. 700 Provider: Lora FERGUSON, [id number] weeks 8 Medical [place] PO Box gestation of Center Vlad R, 1522, Daqu[place] Schumacher [place], 120, Medical [place], [facility] [id number], [place], [place] 120, [place] [id number] Larry, tel: , [place]. [place], tel: [phone]. [id number] tel:[phone] Rajiv Juarez Previous Low Feb-2 Vlad Referring In Womens Transverse 6-201 [place]. 700 Provider: Lora FERGUSON, C-SectionEncounte 8 [facility] PO Box r for suprvsn of Center Vlad R, 1522, normal , [place] Schumacher, second 120, Medical [place], [id number] weeks [facility] , gestation of [place], [place] 120, [place] [id number] [place], tel: , [place]. [place], tel: [phone]. [phone] tel:[phone] Rajiv Juarez Previous Low Feb-2 Vlad Referring In Womens Ultrasound Transverse 6-201 [place]. 700 Provider: Lora FERGUSON, C-SectionEncounte 8 [facility] PO Box r For Center Vlad R, 1522, Screening For [place] Schumacher, [id number] 120, Medical [place], weeks gestation [facility] [id number], of [place], [place] 120, [place] [id number] Larry, tel: , [place]. [place], tel: [phone]. [phone] tel:[phone] Rajiv Juarez Encounter for Mar- Vlad Referring In Womens suprvsn of normal 8-201 [place]. 700 Provider: Lora FERGUSON, , second 8 Medical [place] PO Box [id number] weeks Center Vlad R, 1522, gestation of [place], 120, Medical [place], [facility] [id number], [place], [place] 120, [place] [id number] Larry, tel: , [place]. [place], tel: [phone]. [id number] tel:[phone] Rajiv Juarez Previous Low Dec-2 Vlad Referring In Womens Transverse 1- [place]. 700 Provider: Lora FERGUSON, C-SectionEncntr 7 Medical [place] PO Box screen for Center Vlad R, 1522, infections w sexl , [place] 700 [place], mode of 120, Medical CINDY, transmissEncounte Larry, Avis [id number], [place] for screening [place], [facility] 120, [place] for oth [id number] Larry, tel: infec/parastc , [place]. [place], diseasesEncounter tel: [phone]. for suprvsn of [id number] tel: normal , [phone] first trimesterEncounte r for screening of lmatww06 weeks gestation of Rajiv Juarez Elias-0 Vlad Referring In Womens Follow-Up, [place]. 700 Provider: Lora FERGUSON, Routine 6 Medical [place] PO Box [facility] 1522, , [facility] S, [address] [place] [address], 120, [facility] [id number], [place], [facility] 120, [place] [id number] Larry, tel: , [place]. [place], tel: [phone]. [id number] tel:[phone] Rajiv Juarez Encntr for f/u Dec-1 [place] Referring In Womens exam aft trtmt 0-201 [place]. Provider: Lora FERGUSON, for cond oth than 5 700 [place] PO Box [facility] 1522, Center S, [address] Dr Elana, [facility] [place], 120, A[place] [id number], [facility] 120, [place] Larry WHITE, tel: [phone] [place], , [place]. [id number]. tel: tel: [phone] Rajiv Juarez Dec-2 [place] Referring In Womens 2-201 [place]er. Provider: Lora FERGUSON, 5 700 [place] PO Box [facility] 1522, Center S, [address] Dr Elana, [facility] [place], 120, Avis [id number], Larry, [facility] 120, [place] Larry WHITE, tel:[phone] [place], , [place]. [id number]. tel: tel:[phone] Rajiv Juarez [place] Referring In Womens 8- [place]er. Provider: Health PHYLLIS, 5 700 Greer [place] [facility] [place] 1522, Center S, [address] Dr Elana, [facility] [place], 120, Center [id number], Larry, [facility] 120, Larry WHITE, tel:[phone] [place], , [place]. [id number]. tel: tel:[phone] Rajiv Juarez Nov- [place] Referring In Womens 8-201 [place]er. Provider: Lora FERGUSON, 5 700 [place] Medical [place] 1522, Center S, [address] Dr Elana, [facility] [place], 120, Center [id number], Juarez, [facility] 120, Larry WHITE, tel:[phone] [place], , [place]. [id number]. tel: tel:[phone] Rajiv Juarez July- Ross Referring In Womens 1-201 [place]er. Provider: Lora FERGUSON, 5 700 Greer KISER Box Medical [facility] 1522, Center S, [address] Dr Elana, [facility] [place], 120, Center [id number], Larry, [facility] 120, [place] Larry WHITE, tel:[phone] [place], , [place]. [id number]. tel: tel:[phone] Family History Family Member Diagnosis Age At [...] Insurance type Covered constitution party ID Authorization(s) [facility] CINDY [id number] [place] - Medicaid [place] [id number] [facility] CINDY [id number] [place] Medicaid [place] [id number] [facility] CINDY [id number] [place] Medicaid MC [id number] [facility] [id number] [place] - Medicaid [place] [id number] Social History Type Description Quantity Date Captured Alcohol Use Details No Caffeine Use Details Unknown Tobacco Use Status Smoking Status Former smoker Vital Signs Date / Height Weight BMI Pulse Blood Temperature Respiratory Body Head BMI Time: Rate Pressure Rate Surface Circumference percentile Area 159.70 27.4 124/ lbs 1 mm[Hg] 2:14 kg/m PM eter (2) Chief Complaint And Reason For Visit Unknown Chief Complaint And Reason For Visit Reason For Referral Reason For Referral Unknown Plan Of Care Date Type Action Status Goal Tobacco cessation counseling completed Appointment Francis Levine DMS BOOKED Appointment Francis Levine - AK[facility] - RC/S BOOKED Future Order: Lab Order Pap Smear With HPV Reflex If Ordered ASCUS ([id number]), Collected on: Future Order: Radiology Order Complete OB Ultrasound > 14 Ordered Weeks ([id number]) Date Type Problem Goal Intervention Status Start [...]
--- OUTSIDE RECORDS SUMMARY | 2017-10-03 05:26 | External Medical Summary | Continuity of Care Document ---
:1994 Author Organization [facility] Address [address] [place], [place] [phone] Phone Allergies, Adverse Reactions, Alerts Substance Reaction [...] third trimester 34 weeks gestation of - Previous Low Transverse [...] of normal 1-201 Aj. 700 Provider: Health PHYLLIS, , third 8 Medical Aj PO Box [id number] weeks [place] Vlad Armstrong, 1522, gestation of [place] Schumacher, 120, Medical Larry [facility] [id number], [facility] 120, [place] [id number] Larry, tel: , . [place], tel: [phone]. [phone] tel:[phone] Rajiv Juarez Encounter for Dagoberto-0 Vlad Referring In Womens suprvsn of normal 7-201 Aj. 700 Provider: Health PHYLLIS, , third 8 Medical Aj PO Box [id number] weeks [place] Vlad Armstrong 1522, gestation of Daqu[place] Schumacher, 120, Medical Larry [facility] [id number], [facility] 120, [place] [id number] Larry, tel: , . [place], tel: [phone]. [id number] tel:[phone] Rajiv Juarez Encounter for July-2 Vlad Referring In Womens suprvsn of normal 4-201 Aj. 700 Provider: Health PHYLLIS, , third 8 Medical Aj PO Box [id number] weeks Center Vlad Armstrong, 1522, gestation of [place] Schumacher, 120, Medical Larry [facility] [id number], [place], [place] 120, [place] [id number] Larry, tel: , [place]. [place], tel: [phone]. [id number] tel:[phone] Rajiv Juarez Encounter for May-1 Vlad Referring In Womens suprvsn of normal 0-201 [place]. 700 Provider: Lora FERGUSON, , third 8 Medical [facility] Box [id number] weeks Center Vlad Armstrong, 1522, gestation of [place] Schumacher, 120, Medical Larry [facility] [id number], [place], [place] 120, [place] [id number] Larry, tel: , [place]. [place], tel: [phone]. [id number] tel:[phone] Rajiv Juarez Encounter for Apr-2 [place] Referring In Womens suprvsn of normal 7-201 [place]. Provider: Lora FERGUSON, , third [address] [place] [address] Box weeks Medical Vlad Armstrong, 1522, gestation of [place] Malgorzata Huitron, pregnancyType O , [facility], blood, Rh 120, [place] [id number], negative Juarez, [facility] 120, [place] Larry WHITE, tel: [phone] [place], , [place]. [id number]. tel: tel: [phone] Rajiv Juarez Previous Low Mar-2 Vlad Referring In Womens Transverse 9-201 [place]. 700 Provider: Lora FERGUSON, C-Neggqrr69 weeks 8 Medical [facility] Box gestation of [place] Vlad Armstrong, 1522, [place]qu[place] Schumacher, 120, Medical Larry WHITE, [place] [id number], [place], [facility] 120, [place] [id number] Larry, tel: , . [place], tel: [phone]. [id number] tel:[phone] Rajiv Juarez Previous Low Feb-2 Vlad Referring In Womens Transverse 6-201 [place]. 700 Provider: Lora FERGUSON, C-SectionEncounte 8 Medical [facility] Box r for suprvsn of [place] Vlad R, 1522, normal , [place] Schumacher, second 120, Medical [place], [facility] [id number], gestation of [place], [place] 120, [place] [id number] Larry, tel: , [place]. [place], tel: [phone]. [id number] tel:[phone] Rajiv Juarez Previous Low Feb-2 Vlad Referring In Womens Ultrasound Transverse 6-201 [place]. 700 Provider: Lora FREGUSON, C-SectionEncounte 8 [facility] PO Box r For Center Vlad R, 1522, Screening For [place] Schumacher, Weefaclfmqgce05 120, Medical [place], weeks gestation [facility] [id number], of [place], [place] 120, [place] [id number] Larry, tel: , [place]. [place], tel:[phone]. [id number] tel:[phone] Rajiv Juarez Encounter for Mar- Vlad Referring In Womens suprvsn of normal [place]. 700 Provider: Lora FERGUSON, , second 8 Medical [place] PO Box [id number] weeks Center Vlad R, 1522, gestation of [place] Schumacher, 120, Medical N[facility] [id number], [place], [place] 120, [place] [id number] Larry, tel: , [place]. [place], tel:[phone]. [id number] tel:[phone] Rajiv Juarez Previous Low Dec-2 Vlad Referring In Womens Transverse [place]. 700 Provider: Lora FERGUSON, C-SectionEncntr 7 [facility] PO Box screen for Center Vlad R, 1522, infections w sexl Dr Daqu[place] Malgorzata Huitron, mode of 120, Medical [place], transmissEncounte [facility]Core[facility] [id number], r for screening [place], [place] 120, [place] for oth [id number] Larry, tel: infec/parastc , [place]. [place], diseasesEncounter tel: [phone]. for suprvsn of [id number] tel:+ normal , [phone] first trimesterEncounte r for screening of [id number] weeks gestation of Rajiv Juarez Elias-0 Vlad Referring In Womens Follow-Up, [place]. 700 Provider: Health PA, Routine 6 Medical [place] PO Box [place] Hold[place] 1522, Dr, [place] S, 700 Elana, 120, Medical CINDY, Larry, [place] [id number], [place], [place] 120, [place] [id number] Larry, tel:+2 , [place]. [place], tel: [phone]. [id number] tel:[phone] Rajiv Juarez Encntr for f/u Dec-1 [place] Referring In Womens exam aft trtmt 0-201 [place]. Provider: Lora FERGUSON, for cond oth than 5 700 Greer PO Box [facility] Medical [facility] 1522, Center S, [address] Dr Elana, [facility] [place], 120, Center [id number], Larry, [facility] 120, [place] Larry WHITE, tel:+ [phone] [place], , [place]. [id number]. tel: tel: [phone] Rajiv Juarez Oct-2 [place] Referring In Womens 2-201 [place]er. Provider: Lora FERGUSON, 5 700 Greer PO Box Medical [place] 1522, Center S, [address] Dr Elana, [facility] [place], 120, [place] [id number], Larry, [facility] 120, [place] Larry WHITE, tel: [phone] [place], , [place]. [id number]. tel: tel: [phone] Rajiv Juarez Oct-0 [place] Referring In Womens 8-201 [place]er. Provider: Lora FERGUSON, 5 700 Gre[place] PO Box Medical [place] 1522, Center S, [address] Dr Elana, [facility] [place], 120, Center [id number], Larry, [facility] 120, [place] Larry WHITE, tel:[phone] [place], , [place]. [id number]. tel: tel:[phone] Rajiv Juarez Sep-0 [place] Referring In Womens 8-201 [place]er. Provider: Lora FERGUSON, 5 700 Gre[place] PO Box Medical [place] 1522, Center S, [address] Dr Elana, [facility] [place], 120, Center [id number], Larry, [facility] 120, [place] CINDY Larry, tel: [phone] CINDY, , . [id number]. tel: [phone] Rajiv Juarez July- [place] Referring In Womens 1-201 [place]. Provider: [facility], 5 700 Gre[place] PO Box Medical [place] 1522, [place] S, [address] Dr Elana, [facility], 120, [place] [id number], [facility] 120, CINDY Larry, tel: [phone] [place], , [place]. [id number]. tel: tel:[phone] Family History Family Member Diagnosis Age At [...] Record Payers Payer name Insurance type Covered republican ID Authorization(s) [facility] [place] [id number] [place] [id number] [place] [id number] [place] - Medicaid [place] [id number] [facility] [place] [id number] [place] - Medicaid [place] [id number] [facility] [place] [id number] [place] - [place] [id number] [facility] [place] [id number] [place] [id number] [facility] [place] [id number] [place] MC [id number] Social History Type Description Quantity Date Captured Alcohol Use Details No Caffeine Use Details Unknown Tobacco Use Status Smoking Status Former smoker Vital Signs Date / Height Weight BMI Pulse Blood Temperature Respiratory Body Head BMI Time: Rate Pressure Rate Surface Circumference percentile Area 169.30 29.0 122/79 2018 lbs 6 mm[Hg] 2:00 kg/m PM eter (2) Chief Complaint And Reason For Visit Unknown Chief Complaint And Reason For Visit Reason For Referral Reason For Referral Unknown Plan Of Care Date Type Action Status Goal Tobacco cessation counseling completed Appointment rFancis Levine BOOKED Appointment Francis Levine - VAC - RC/S BOOKED Future Order: Lab Order Pap Smear With HPV Reflex If Ordered ASCUS (WPMPap1), Collected on: Future Order: Radiology Order Complete OB Ultrasound > 14 Ordered Weeks ([id number]) Date Type Problem Goal Intervention Status Start [...]
--- OUTSIDE RECORDS SUMMARY | 2017-10-03 05:26 | External Medical Summary | Continuity of Care Document ---
:1995 Author Organization [facility] Address [address] [place], [place] [id number] Phone Allergies, Adverse Reactions, Alerts Substance Reaction [...] third trimester 30 weeks gestation of - Previous Low Transverse [...] , third 8 Medical Aj [address] Box [id number] weeks [place] Vlad R, 1522, gestation of Daquan Schumacher, 120, Medical [facility] [id number], [place], [facility] 120, [place] [id number] Larry, tel: , [place]. CINDY, tel: [phone] tel:[phone] Rajiv Juarez Encounter for Vlad Referring In Womens suprvsn of normal 0-201 Aj. 700 Provider: Health PHYLLIS, , third 8 Medical Aj [address] Box [id number] weeks [place] Vlad R, 1522, gestation of Daquan Schumacher, 120, [facility] [id number], [place], [facility] 120, [place] [id number] Lrary, tel: , [place]. [place], tel: [phone] tel:[phone] Rajiv Juarez Encounter for Cotto Referring In Womens suprvsn of normal 7-201 [place]. Provider: Health PA, , third 8 700 Aj PO Box [id number] weeks Medical Vlad R, 1522, gestation of [place] Malgorzata Huitron pregnancyType O , [facility] CINDY, blood, Rh 120, Center [id number], negative Larry, [facility] 120, Larry WHITE, tel: [phone] [facility] , . [id number]. tel: tel: [phone] Rajiv Juarez Previous Low Mar-2 Vlad Referring In Womens Transverse 9-201 [place]. 700 Provider: Health PHYLLIS, [id number] weeks 8 Medical [place] PO Box gestation of Center Vlad R, 1522, Daquan Schumacher, 120, Medical [place], Juarez, [place] [id number], [place], [place] 120, [place] [id number] Larry, tel: , [place]. [place], tel: [phone] tel:[phone] Rajiv Juarez Previous Low Feb-2 Vlad Referring In Womens Transverse 6-201 [place]. 700 Provider: Health PHYLLIS, C-SectionEncounte 8 [facility] PO Box r for suprvsn of Center Vlad R, 1522, normal , Daquan Schumacher, second 120, Medical [place], [id number] weeks [facility] [id number], gestation of [place], [place] 120, [place] [id number] Larry, tel: , [place]. [place], tel: [phone]. [phone] tel:[phone] Rajiv Juarez Previous Low Feb-2 Vlad Referring In Womens Ultrasound Transverse 6-201 [place]. 700 Provider: Lora FERGUSON, C-SectionEncounte 8 [facility] PO Box r For Center Vlad R, 1522, Screening For Daquan Schumacher, [id number] 120, Medical [place], weeks gestation [facility] [id number], of [place], [place] 120, [place] [id number] Larry, tel: , [place]. [place], tel: [phone] tel:[phone] Rajiv Juarez Encounter for Elias- Vlad Referring In Womens suprvsn of normal 8-201 [place]. 700 Provider: Lora FERGUSON, , second 8 Medical [place] PO Box [id number] weeks Center Vlad R, 1522, gestation of Daquan Schumacherta, 120, Medical [place], [facility] [id number], [place], [place] 120, [place] [id number] Larry, tel: , [place]. [place], tel: [phone]. [phone] tel:[phone] Rajiv Juarez Previous Low Dec-2 Vlad Referring In Womens Transverse 1- [place]. 700 Provider: Health PHYLLIS, C-SectionEncntr 7 Medical [place] PO Box screen for Center Vlad R, 1522, infections w sexl , [place]an 700 [place], mode of 120, Medical CINDY, transmissEncounte Larry, [place] [id number], vance for screening [place], [facility] 120, for oth [id number] Larry, tel: infec/parastc , [place]. [place], diseasesEncounter tel: [phone]. for suprvsn of [id number] tel:[phone] first trimesterEncounte r for screening of [id number] weeks gestation of Rajiv Juarez Elias-0 Vlad Referring In Womens Follow-Up, - [place]. 700 Provider: Lora FERGUSON, Routine 6 Medical [place] PO Box [facility] 1522, , [facility] S, [address] [place] [address], 120, [facility] [id number], [place], [facility] 120, [place] [id number] Larry, tel: , [place]. [place], tel: [phone]. [phone] tel:[phone] Rajiv Juarez Encntr for f/u Dec-1 [place] Referring In Womens exam aft trtmt 0-201 [place]. Provider: Lora FERGUSON, for cond oth than 5 700 [place] PO Box [facility] 1522, Center S, [address] Dr Elana, [facility], 120, [place] [id number] [facility] 120, [place] Larry WHITE, tel: [phone] [facility] , [place]. [id number]. tel: tel: [phone] Rajiv Juarez Dec-2 [place] Referring In Womens 2-201 [place]. Provider: Lora FERGUSON, 5 700 [place] PO Box Medical [facility] 1522, Center S, [address] Dr Elana, [facility], 120, [place] [id number], Larry, [facility] 120, [place] Larry WHITE, tel:[phone] [facility] , [place]. [id number]. tel: tel:[phone] Associates Larry [place] Referring In Womens 8- [place]. Provider: Health PHYLLIS, 5 700 [place] Medical [place] 1522, Center S, [address] Dr Elana, [facility], 120, Center [id number], [facility] 120, Larry WHITE, tel:[phone] [place], , [place]. [id number]. tel: tel:[phone] Associates Larry Nov- [place] Referring In Womens 8-201 [place]. Provider: Lora FERGUSON, 5 700 [place] Medical [place] 1522, Center S, [address] Dr Elana, [facility], 120, [place] [id number], Larry, [facility] 120, Larry WHITE, tel:[phone] [place], , [place]. [id number]. tel: tel:[phone] Rajiv Juarez July- Holddorothy Referring In Womens 1-201 [place]. Provider: Lora FERGUSON, 5 700 [place]ER Box Medical [facility] 1522, Center S, [address] Dr Elana, [facility], 120, Center [id number], [facility] 120, Larry WHITE, tel:[phone] [place], , [place]. [id number]. tel: tel:[phone] Family History Family Member Diagnosis Age At [...] Colon Cancer Immunizations Vaccine Date Status Comments [facility] completed Source: New Immunization Record Tdap completed Source: New Immunization Record Influenza, seasonal, injectable, completed Source: New Immunization Record preservative free, 3 yrs or older [facility] completed Source: New Immunization Record Payers Payer name Insurance type Covered republican ID Authorization(s) [facility] CINDY [id number] [employer] [place] - Medicaid MC [id number] [facility] [id number] [employer] [place] [employer] [place] Medicaid [place] [id number] [facility] [id number] [employer] [place] [employer] [place] Medicaid [place] [id number] [facility] [id number] [employer] [place] Medicaid MC [id number] [facility] [id number] [employer] [place] Medicaid [place] [id number] Social History Type Description Quantity Date Captured Alcohol Use Details No Caffeine Use Details Unknown Tobacco Use Status Smoking Status Former smoker Vital Signs Date / Height Weight BMI Pulse Blood Temperature Respiratory Body Head BMI Time: Rate Pressure Rate Surface Circumference percentile Area 165.70 28.4 lbs 4 mm[Hg] 2:14 kg/m PM eter (2) Chief Complaint And Reason For Visit Unknown Chief Complaint And Reason For Visit Reason For Referral Reason For Referral Unknown Plan Of Care Date Type Action Status Goal Tobacco cessation counseling completed Appointment Francis Levine BOOKED Appointment Francis Levine - [facility] - [facility]/S BOOKED Future Order: Lab Order Pap Smear With HPV Reflex If Ordered ASCUS ([id number]), Collected on: Future Order: Radiology Order Complete OB Ultrasound > 14 Ordered Weeks ([id number]) Date Type Problem Goal Intervention Status Start [...]
[2017-10-03] MEDS ORDERED: CITRIC ACID/SODIUM CITRATE 30ml PO ONE (05:34)
[2017-10-03] MEDS ORDERED: FAMOTIDINE PB 20 MG/50 ML BAG IV ONE (05:34)
[2017-10-03] MEDS ORDERED: CEFAZOLIN PREMIX (MC ONLY) 2 GM/50 ML BAG IV ONE (05:37)
[2017-10-03 05:54] VITALS: BMI 29.9
[2017-10-03] MEDS: LR 1,000 ML IV SCH ×2 (06:07→07:50)
--- NOTE | 2017-10-03 06:47 | Anesthesia Preoperative Report ---
Anesthesia Preoperative Record - Date and Time Date: 10/03/17 Preoperative Diagnosis: Repeat C Section Proposed Procedure: Repeat NPO Since Date: 10/03/17 NPO Since Time: 00:00 Allergies/Adverse Reactions: Allergies Allergy/AdvReac Type Severity Reaction Status Date / Time No Known Allergies Allergy Verified 10/03/17 05:39 - Vital Signs Vital Signs: Temperature 98.3 F 10/03/17 05:45 Pulse Rate 98 10/03/17 05:45 Respiratory Rate 16 10/03/17 05:45 Blood Pressure 125/87 10/03/17 05:45 Pulse Oximetry 100 10/03/17 05:45 Height and Weight: Height 5 ft 4 in Weight 79 kg Body Mass Index 29.9 - Medications Inpatient Medications: Current Medications Lactated Ringer's (Lactated Ringers) 1,000 mls @ 150 mls/hr IV .[id number] KRISHNA Last Admin: 10/03/17 06:07 Dose: 150 mls/hr Home Medications: Home Medications Medication Instructions Recorded Confirmed Type Ferrous Sulfate [Iron] 325 mg PO DAILY 09/20/17 09/20/17 History Vit Calc,Iron,Folic 1 each PO DAILY 09/20/17 09/20/17 History [ Vitamins] Is Patient on Beta Caitlin?: No - Medical History Respiratory: Reports: Other (former smoker) DENIES: Sleep Apnea Cardiovascular: DENIES: Abnormal EKG, Angina, Arrhythmia, Congestive Heart Failure, Coronary Artery Disease, Heart Murmur, Hypertension, Hypotension, High Cholesterol, Myocardial Infarction, Rheumatic Fever, Valvular Heart Disease, Other Gastrointestional: Reports: Gastroesophageal Reflux Disease (Reflux when nervous ) Neuro/Musculoskeletal: Denies: Back Problems, Cerebrovascular Accident, Depression, Headaches, Loss of Consciousness, Muscle Weakness, Neuromuscular Disorder, Paralysis, Paresthesia, Syncope, Seizures, Other Renal/Endocrine: DENIES: Diabetes Mellitus Type 1, Diabetes Mellitus Type 2, Renal Failure, Dialysis, Thyroid Disease, Weight Loss, Weight Gain, Other Other History: Reports: Now - Surgical History Reproductive Surgery/Treatment: Reports: Section Anesthesia Reactions: None Hx Family Anesthesia Reaction: No History of Motion Sickness: No - Social History Smoking Status: Former smoker - Pertinent Findings Laboratory: CBC and BMP 10/03/17 05:56 - Physical Exam Respiratory Exam: Present: lungs clear, bilateral breath sounds equal Cardiovascular Exam: Present: regular rate and rhythm, no murmur - Airway Assessment Mallampati Score: II TMD: 3 Fingerbreadths Neck Extension: good Overall Assessment: may be difficult intubation - ASA ASA Score: 2 - Plan Anesthesia: Neuroaxial Regional/Trunk Block: Spinal - Discussion Discussion: Discussed risks/options/alternatives of anesthesia and questions answered. Patient consents. Nursing pain assessment noted. Present for Discussion: spouse Attestation Statement: Prior to the delivery of any anesthetic medication, I examined the patient, developed the plan, obtained the patient's consent and discussed the risk and benefits of the procedure with the patient/guardian. - Additional Information Seen by Anesthesia: Yes
[2017-10-03] MEDS ORDERED: FentaNYL 100 MCG/2 ML INJECTION ONE (06:49)
[2017-10-03] MEDS ORDERED: ONDANSETRON 4 MG/2 ML INJECTION ONE (06:49)
[2017-10-03] MEDS ORDERED: EPHEDRINE 50mg/ml INJECTION ONE (06:49)
[2017-10-03] MEDS ORDERED: MORPHINE SULFATE PF 5mg/10ml INJ (Duramorph) ONE (06:49)
[2017-10-03] MEDS ORDERED: BUPIVACAINE 0.75%/DEXTROSE 8.5% SPINAL 2 ML AMPULE IJ ONE (06:53)
[2017-10-03] MEDS ORDERED: LIDOCAINE 2% (100mg/5mL) 5ml PF SDV ONE (06:54)
[2017-10-03] MEDS ORDERED: .WATER FOR INJECTION,STERILE 10 ML VIAL ONE (06:56)
[2017-10-03] MEDS: OXYTOCIN BOLUS BAG 30 UNIT/500 ML ML IV SCH ×2 (07:36→12:04)
[2017-10-03] MEDS ORDERED: NALBUPHINE 10 MG/ML INJECTION IVP PRN (08:44)
[2017-10-03] MEDS ORDERED: DiphenhydrAMINE 50 MG/ML INJECTION IVP PRN (08:44)
[2017-10-03] MEDS ORDERED: ONDANSETRON 4 MG/2 ML INJECTION IVP PRN (08:44)
[2017-10-03] MEDS ORDERED: NALOXONE 2 MG/2 ML INJECTION PFS IVP PRN (08:44)
[2017-10-03] MEDS: D5LR 1,000 ML IV SCH ×2 (08:45→22:18)
[2017-10-03] MEDS ORDERED: ONDANSETRON ODT 4 MG TABLET PO PRN (09:06)
[2017-10-03] MEDS ORDERED: MEASLES-MUMPS-RUBELLA VACCINE 0.5ml INJECTION SQ ONE (09:06)
[2017-10-03] MEDS ORDERED: METOCLOPRAMIDE 10mg/2ml INJECTION IVP PRN (09:06)
[2017-10-03] MEDS ORDERED: SIMETHICONE 80 MG CHEWABLE TABLET PO PRN (09:06)
[2017-10-03] MEDS ORDERED: SALINE FLUSH 10ml SYRINGE IV PRN (09:06)
[2017-10-03] MEDS ORDERED: DiphenhydrAMINE 25 MG CAPSULE PO PRN (09:06)
[2017-10-03] MEDS ORDERED: HYDROCORTISONE 2.5% CREAM 30gm RECTALLY PRN (09:06)
[2017-10-03] MEDS ORDERED: RHOPHYLAC - PHARMACY CONSULT MC ONE (09:06)
[2017-10-03] MEDS ORDERED: ACETAMINOPHEN 500 MG TABLET PO PRN (09:06)
[2017-10-03] MEDS ORDERED: CALCIUM CARBONATE Chewable 500mg TABLET PO PRN (09:06)
[2017-10-03] MEDS ORDERED: OXYTOCIN DRIP 30 UNIT/500 ML ML IV SCH (09:06)
[2017-10-03] MEDS: IBUPROFEN 800 MG TABLET PO PRN ×2 (09:29→17:02)
[2017-10-03] MEDS: HYDROCODONE/APAP 5mg/325mg TABLET PO PRN ×3 (09:30→22:12)
--- NOTE | 2017-10-03 14:40 | Operative Note ---
DATE OF SURGERY: 10/03/2017 PREOPERATIVE DIAGNOSIS 1. 22-year-old white female, G3, P1 at 39.2 weeks gestational age. 2. Previous x1. POSTOPERATIVE DIAGNOSIS Female 12/04 Apgars, 3340 grams (Yonathan Taveras). PROCEDURES: Repeat low transverse section. ANESTHESIA: Spinal by Olaf Borges CRNA SURGEON: Aj Chu MD STOPPER GRINDER: Eduardo Hernandez, Customs Broker EBL: 800 mL COMPLICATIONS: None DESCRIPTION OF PROCEDURE After adequate spinal anesthesia, the patient was prepped and draped in the left lateral decubitus position. A Pfannenstiel skin incision was made with a sharp knife and carried down to the fascia, which was incised transversely with the Zamarripa scissors. The rectus fascia was bluntly and sharply dissected off the rectus muscle. The rectus muscle was divided, and the peritoneum was isolated, elevated, entered with the Metzenbaum scissors and extended cephalad and caudad. The bladder blade was then inserted. Then using a sharp knife, a transverse incision was made in the lower uterine segment above the bladder. This was extended with my fingers. A female was delivered from the vertex position without difficulty. Infant was bulb suctioned after delivery of the head and then again after delivery of the body. Cord was doubly clamped and cut and the infant was taken to the isolette where it was received by Debi Fernandez RN, charge nurse. The placenta was expressed manually and was intact. The uterus was then allowed to fall upon the external abdominal wall. The endometrial cavity was cleansed using moist lap sponges. The uterus was closed using 0-Monocryl in a running locking fashion. Hemostasis was confirmed. The posterior cul-de-sac was cleansed of old blood clots and the tubes and ovaries were examined and found to be normal in size, shape and appearance. After hemostasis was again confirmed, the uterus was then carefully returned to the abdominal cavity. The abdomen was then closed in layers. The peritoneum was closed using 2-0 Vicryl in running nonlocking fashion. The fascia was closed using 0-Vicryl in a running nonlocking fashion bilaterally from the lateral aspects medially. Hemostasis was achieved with the subcutaneous tissue and then the skin was closed using 4-0 undyed Vicryl in a subcuticular manner. Then Benzoin and Steri-Strips were placed. The patient tolerated the procedure well and went to the recovery room in stable condition. Pad, sponge and needle counts were correct and urine postop was clear and free flowing. MTDD
[2017-10-03] MEDS: DOCUSATE CALCIUM 240 MG CAPSULE PO SCH (14:45)
[2017-10-03] MEDS: PRENATAL VITAMIN TABLET PO SCH (14:45)
[2017-10-03] MEDS: SIMETHICONE 80 MG CHEWABLE TABLET PO SCH ×2 (14:45→22:12)
--- NOTE | 2017-10-03 18:14 | Progress Note ---
OB PP Progress Note Free Text - Date Date: 10/03/17 - Progress Note Progress Note: Pt reports good pain control. Hgb 10.9-9.7 Abd-dressed, dry, abdominal binder in place Cont current plan.
[2017-10-04] MEDS: IBUPROFEN 800 MG TABLET PO PRN ×3 (01:29→19:36)
[2017-10-04] MEDS: HYDROCODONE/APAP 5mg/325mg TABLET PO PRN ×5 (03:30→19:34)
[2017-10-04] MEDS: SIMETHICONE 80 MG CHEWABLE TABLET PO SCH ×6 (06:26→21:01)
[2017-10-04] MEDS: D5LR 1,000 ML IV SCH (06:27)
[2017-10-04] MEDS: FERROUS SULFATE 324 MG TABLET PO SCH (07:55)
--- NOTE | 2017-10-04 08:12 | OB/GYN Progress Note ---
OB-PP Progress Note - General POD:: POD1 - Subjective Date: 10/04/17 Lochia: Minimal Pain: controlled Voiding: voiding Nausea or Vomiting Present: No - Objective Vital Signs: Last Vital Signs Temp 98.2 F 10/04/17 07:40 Pulse 83 10/04/17 07:40 Resp 18 10/04/17 07:40 BP 123/76 10/04/17 07:40 Pulse Ox 99 10/04/17 07:40 Urine Output: good General: alert and oriented Abdomen: fundus firm Incision: clean, dry, intact Extremities: non-tender Laboratory: Laboratory Results - last 24 hr 10/03/17 10/03/17 10/03/17 05:56 15:28 15:28 WBC 13.0 H D RBC 3.87 L Hgb 9.7 L D Hct 30.8 L MCV 79.6 L MCH 25.1 L MCHC 31.5 RDW Std Deviation 42.8 Plt Count 247 MPV 10.5 Hgb /Adult Ratio 0.0000 Antibody Identification Immune D - Assessment Assessment: Repeat C/S - Plan Plan: routine care (No complaints)
[2017-10-04] MEDS: DOCUSATE CALCIUM 240 MG CAPSULE PO SCH (09:00)
[2017-10-04] MEDS: PRENATAL VITAMIN TABLET PO SCH (09:00)
[2017-10-04] MEDS ORDERED: RHO(D) IMMUNE GLOBULIN 300 MCG/2 ML INJECTION IVP ONE (09:45)
--- NOTE | 2017-10-04 14:16 | Pharmacy Consult ---
Pharmacy Consult-Rhophylac - Laboratory Information 10/03/17 10/03/17 05:56 15:28 Hgb /Adult Ratio 0.0000 Blood Type O Negative - Consult Information Rh FACTOR CONSULT: Mother Blood Type = O (-) Negative Child Blood Type = O (+) Positive Hgb / Adult Ratio = 0.0000 Will give Rho D Immunglobulin 300mcg IVP x 1 dose. Thank you, Hudson Bryan, Pharmacist.
[2017-10-05] MEDS: HYDROCODONE/APAP 5mg/325mg TABLET PO PRN ×3 (02:42→12:53)
[2017-10-05 02:43] VITALS: RESP 16
[2017-10-05] MEDS: IBUPROFEN 800 MG TABLET PO PRN (06:21)
[2017-10-05 08:00] VITALS: TEMP 98.1
[2017-10-05 12:03] VITALS: BP 107/74; PULSE 71; O2SAT 99
[2017-10-05] MEDS: PRENATAL VITAMIN TABLET PO SCH (12:03)
[2017-10-05] MEDS: DOCUSATE CALCIUM 240 MG CAPSULE PO SCH (12:04)
[2017-10-05] MEDS: SIMETHICONE 80 MG CHEWABLE TABLET PO SCH (12:04)
[2017-10-05] MEDS: FERROUS SULFATE 324 MG TABLET PO SCH (12:07)
--- NOTE | 2017-10-05 13:19 | Progress Note ---
OB PP Progress Note Free Text - Date Date: 10/05/17 - Progress Note Progress Note: PPD #2 DOING WELL desires dc instructions reviewed q&a-krb
== END 2017-10-05 13:50 | disposition home or self-care (01) | DRG 766 ==
LOC: MC 10-03 05:20
PROVIDERS: ADMIT Obstetrics & Gynecology; ATTEND Obstetrics & Gynecology